=== PATIENT | male | born 2000 | race Two or more races ===

== ENCOUNTER 2020-07-31 22:23 | Emergency (ER) | payer MEDICAID ==
[~2020-07-31] VITALS: Ht 160 cm; Wt 49.8 kg
[~2020-07-31 22:23] MED LIST: NO HOME MEDS
[2020-07-31 22:33] VITALS: BP 117/57
[2020-07-31] MEDS ORDERED: ibuprofen tablet 400 MG TABLET PO ONE (23:35)
[2020-07-31] MEDS ORDERED: TETanus/Pertussis (Acell)/Diphther VAC/PF (Tdap-Adult) 0.5ml syringe IMVAC ONE (23:35)
[2020-07-31] MEDS ORDERED: LIDOcaine 1% 30ml preserv. free vial IJ ONE (23:40)
[2020-08-01] MEDS ORDERED: mupirocin 2% ointment 22GM TP ONE (00:30)
== END 2020-08-01 00:50 | disposition home or self-care (01) ==
LOC: ER 22:24
DX: S61.214A Laceration without foreign body of right ring finger without damage to nail, initial encounter (principal); S61.216A Laceration without foreign body of right little finger without damage to nail, initial encounter; I10 Essential (primary) hypertension; W45.8XXA Other foreign body or object entering through skin, initial encounter; Y93.23 Activity, snow (alpine) (downhill) skiing, snowboarding, sledding, tobogganing and snow tubing; Y92.89 Other specified places as the place of occurrence of the external cause; Y99.8 Other external cause status
CPT/HCPCS: 12002; 12004; 73130; 90471; 90715; 99283